=== PATIENT | female | born 1940 | race Caucasian/White ===

== ENCOUNTER 2018-01-17 15:02 | Emergency (ER) | payer MEDICARE ==
[~2018-01-17] VITALS: Ht 165.1 cm; Wt 72.6 kg
[~2018-01-17 15:02] MED LIST: ATENOLOL25 MG PO; CARAFATE1 G1 PO; PANTOPRAZOLE SO40 MG PO; PROTONIX40 M2 PO; QUESTRAN PACKET4 GM PO; RESTORIL15 MG PO; TRAMADOL-ACETAMI1 EA PO; Z.0.COUMADIN3 MG PO; Z.0.RESTORIL30 MG PO; Z.0.ULTRAM 50MG50 MG PO; ZIAC1 UDTAB PO; [UNRECOGNIZED DRUG - OTHER] PO; [UNRECOGNIZED DRUG - OTHER] PO
[2018-01-17 15:13] VITALS: BP 152/87
== END 2018-01-17 15:19 | disposition home or self-care (01) ==
LOC: FSED 15:02
DX: Z48.02 Encounter for removal of sutures (principal)
CPT/HCPCS: 99282; S0630

== ENCOUNTER 2019-02-03 16:50 | Emergency (ER) | payer MEDICARE ==
[~2019-02-03] VITALS: Ht 165.1 cm; Wt 71.0 kg
--- OUTSIDE RECORDS SUMMARY | 2019-02-03 16:54 | XMS REPORT | Clinical Summary ---
Author Author [employer] [facility] [employer] [facility] Address Unknown Phone Unavailable Care Team Providers Care Working Manager Name Role Phone Robyn Coates MD PCP Allergies Comments Active Allergy Reactions Severity Noted Date bleeding ulcer. OK WITH LOW DOSE ASA Aspirin Other (See 05/29/2018 Comments) Morphine 09/13/2018 Bleeding ulcer Nsaids (Non-Steroidal Other (See 05/29/2018 Anti-Inflammatory Drug) Comments) Medications End Date Status Medication Sig Dispensed Refills Start Date Active DULoxetine (CYMBALTA) 30 Take 30 mg by 0 MG capsule mouth nightly. Active tamoxifen (NOLVADEX) 20 Take 20 mg by 0 MG tablet mouth daily. Active traMADol-acetaminophen Take 1 tablet 0 (ULTRACET) 37.5-325 mg by mouth per tablet every 6 (six) hours as needed for Pain. 09/21/2018 Discontinued aspirin 81 MG EC tablet Take 81 mg by 0 mouth daily. 10/06/2018 aspirin 325 MG EC tablet Take 1 tablet 14 tablet 0 (325 mg 9 total) by mouth daily for 14 days. 10/06/2018 HYDROcodone-acetaminophen Take 1 tablet 60 tablet 0 (NORCO 10-325) 10-325 mg by mouth 9 per tablet every 6 (six) hours as needed for up to 15 days. Max Daily Amount: 4 tablets Active Problems Problem Noted Date Arthritis 09/19/2018 Primary osteoarthritis of right knee 09/19/2018 Status post right knee replacement 09/19/2018 Incisional hernia 05/30/2018 Encounters Care Team Description Date Type Specialty Kourtney Samuels MD ARTHROPLASTY,KNEE UNILATERAL 09/19/2018 Surgery Forrest Stringer MD 09/19/2018 Anesthesia Event Kourtney Samuels MD 09/19/2018 [facility] General Internal Medicine - Encounter 09/21/2018 09/19/2018 [facility], [facility] Phone 09/13/2018 Hospital Pre-Admission Testing Encounter Shalini Vallecillo MD HERNIORRHAPHY,INCISIONAL 05/30/2018 Surgery Trudy, Premala 05/30/2018 Anesthesia Event Shalini Vallecillo MD Incisional hernia, without obstruction or gangrene (Primary Dx) 05/30/2018 Hospital Encounter Resource, [facility] Phone 05/29/2018 Hospital Pre-Admission Testing Encounter after 02/02/2018 Social History Date Tobacco Use Types Packs/Day Years Used Former Smoker Smokeless Tobacco: Former User Comments: quit 35 years ago Alcohol Use Drinks/Week oz/Week Comments No Alcohol Habits Answer Date Recorded How often do you have a drink containing alcohol? Never 05/29/2018 How many drinks containing alcohol do you have on Not asked a typical day when you are drinking? How often do you have six or more drinks on one Not asked occasion? Sex Assigned at Date Recorded Not on file Industry Job Start Date Occupation Not on file Not on file Not on file Travel End Travel History Travel Start No recent travel history available. Last Filed Vital Signs Time Taken Vital Sign Reading 09/21/2018 4:03 PM SURGICAL SERVICES ASSISTANT Blood Pressure 141/81 09/21/2018 4:03 PM SURGICAL SERVICES ASSISTANT Pulse 92 09/21/2018 4:03 PM SURGICAL SERVICES ASSISTANT Temperature 37.1 C (98.8 F) 09/21/2018 4:03 PM SURGICAL SERVICES ASSISTANT Respiratory Rate 18 09/21/2018 4:03 PM SURGICAL SERVICES ASSISTANT Oxygen Saturation 94% - Inhaled Oxygen - Concentration 09/19/2018 6:56 AM SURGICAL SERVICES ASSISTANT Weight 72.4 kg (159 lb 9.8 oz) 09/19/2018 6:56 AM SURGICAL SERVICES ASSISTANT Height 165.1 cm (5' 5") 09/19/2018 6:56 AM SURGICAL SERVICES ASSISTANT Body Mass Index 26.56 Plan of Treatment Not on file Implants Device Identifier Shelf Expiration Date Model / Serial / Lot Implanted Type Area Manufactur er 11/14/2020 6191-1-001 / / [id number] Cement Bone Surg Smplx P Full Cement/Pranay Right: Knee JASON:ST 6191-1-001 - [id number] ler/Adhesi SRINI Implanted: Qty: 2 on 09/19/2018 by ve Kourtney Schulte MD [id number] 06/26/2023 5520-B-400 / / [id number] Baseplt Nelly Tib Yao No.4 5520-B-400 Joints Right: Knee JASON:ST - [id number] SRINI Implanted: Qty: 1 on 09/19/2018 by Kourtney Schulte MD [id number] 04/07/2023 5510-F-402 / / [id number] Comp Fem Cr Yao No.4 R 5510-F-402 - Joints Right: Knee JASON:ST [id number] SRINI Implanted: Qty: 1 on 09/19/2018 by Kourtney Schulte MD [id number] 09/22/2022 5530-G-411 / / [id number] Insrt Tib #4 11mm 5530-G-411 - Joints Right: Knee JASON:ST [id number] SRINI Implanted: Qty: 1 on 09/19/2018 by Kourtney Schulte MD [id number] 06/29/2023 5551-G-320 / / [id number] Patella Tri Asymmetric [id number] Joints Right: Knee JASON:ST 5551-G-320 - [id number] SRINI Implanted: Qty: 1 on 09/19/2018 by Kourtney Schulte MD 06/04/2021 PMII / [id number] / [id number] Mesh Geo Prol 3x6in Polypr - Mesh N/A: Abdomen J [id number] &J:ETHICON Implanted: Qty: 1 on 05/30/2018 by Shalini Vallecillo MD Procedures Comments Procedure Name Priority Date/Time Associated Diagnosis RHYTHM STRIP - SCAN 09/25/2018 6:41 AM CDT HEMOGLOBIN AND HEMATOCRIT Routine 09/21/2018 5:34 AM SURGICAL SERVICES ASSISTANT BASIC METABOLIC PANEL (7) Routine 09/21/2018 5:34 AM SURGICAL SERVICES ASSISTANT TRANSFUSION SERVICE 09/20/2018 REPORT - SCAN 6:24 PM SURGICAL SERVICES ASSISTANT HEMOGLOBIN AND HEMATOCRIT Routine 09/20/2018 5:23 AM SURGICAL SERVICES ASSISTANT BASIC METABOLIC PANEL (7) Routine 09/20/2018 5:23 AM SURGICAL SERVICES ASSISTANT AL AN PERINEURAL CATH - Routine 09/19/2018 NO CHARGE 10:06 AM SURGICAL SERVICES ASSISTANT TISSUE EXAM AP Routine 09/19/2018 8:32 AM SURGICAL SERVICES ASSISTANT ANESTHESIA SPINAL BLOCK Routine 09/19/2018 8:16 AM SURGICAL SERVICES ASSISTANT PROCEDURE W/ ILANA ROBOT 09/19/2018 Primary osteoarthritis of 8:15 AM SURGICAL SERVICES ASSISTANT one knee, right Special Needs (JASON TRIATHLON, ILANA ROBOT, SPINAL EPIDURAL WITH ADDUCTOR CANAL BLOCK) ARTHROPLASTY,KNEE 09/19/2018 Primary osteoarthritis of UNILATERAL 8:15 AM SURGICAL SERVICES ASSISTANT one knee, right Special Needs (JASON TRIATHLON, ILANA ROBOT, SPINAL EPIDURAL WITH ADDUCTOR CANAL BLOCK) ABORH, MANUAL STAT 09/19/2018 7:15 AM SURGICAL SERVICES ASSISTANT TYPE AND SCREEN, Routine 09/19/2018 AUTOMATED 7:00 AM SURGICAL SERVICES ASSISTANT HERNIORRHAPHY,INCISIONAL 05/30/2018 Incisional hernia, 7:30 AM SURGICAL SERVICES ASSISTANT without obstruction or gangrene Case Notes 60 MINS PER ROSSY after 02/02/2018 Results * RHYTHM STRIP - SCAN (09/25/2018 6:41 AM CDT) Narrative Performed At * Hemoglobin and hematocrit (09/21/2018 5:34 AM SURGICAL SERVICES ASSISTANT) Only the most recent of 2 results within the time period is included. Hemoglobin 12.0 11.2 - 15.7 GM/DL [facility] Hematocrit 36.8 34.1 - 44.9 % [facility] Specimen Blood Performing Organization Address City/State/Zipcode Phone Number [facility] [address] [place] [address] [facility] * Basic metabolic panel (09/21/2018 5:34 AM SURGICAL SERVICES ASSISTANT) Only the most recent of 2 results within the time period is included. Sodium 143 136 - 145 meq/L [facility] Potassium 4.4 3.5 - 5.1 meq/L [facility] Chloride 111 (H) 98 - 107 meq/L [facility] CO2 27 22 - 29 meq/L [facility] BUN 5 (L) 7 - 21 mg/dL [facility] Creatinine 0.62 0.57 - 1.25 mg/dL [facility] Glucose 162 (H) 70 - 105 mg/dL [facility] Calcium 8.7 8.4 - 10.2 mg/dL [facility] EGFR 94Comment: ESTIMATED GFR IS mL/min/1.73 sq m [facility] NOT ACCURATE CREATININE [place] CLEARANCE IN PREDICTING GLOMERULAR FILTRATION RATE. ESTIMATED GFR IS NOT APPLICABLE FOR DIALYSIS PATIENTS. Specimen Blood Performing Organization Address City/State/Zipcode Phone Number [facility] [address] [place] [address] [facility] * TRANSFUSION SERVICE REPORT - SCAN (09/20/2018 6:24 PM SURGICAL SERVICES ASSISTANT) Narrative Performed At * ANESTHESIA PERIPHERAL BLOCK (09/19/2018 10:06 AM SURGICAL SERVICES ASSISTANT) Narrative Performed At Forrest Stringer MD 09/19/2018 10:07 AM Peripheral Block Patient location during procedure: PACU Start time: 09/19/2018 9:41 AM End time: 09/19/2018 9:45 AM Procedure Indication: procedure for pain, at surgeon's request and post-op pain management Preanesthetic Checklist Completed: patient identified, pre-op evaluation, timeout performed, IV checked, risks and benefits discussed, monitors and equipment checked, anesthesia consent given, prep site dry prior to draping and maximum sterile barriers were used: cap, mask, sterile gown, sterile gloves, and large sterile sheet Staffing Anesthesiologist: Forrest Stringer MD Performed: personally Prep Prep: chlorhexidine gluconate and isopropyl alcohol Procedures: sterile gloves, surgical mask, surgical hat, sterile technique and prep and sterile drape applied Peripheral Nerve Block Patient position: supine Patient monitoring: EKG, HR, BP and SpO2 Laterality: right Block type: adductor canal Injection technique: catheter ultrasound guided - in plane, prescan was completed prior to procedure and needle tip was visualized throughout the entire procedure ultrasound image saved Block Dose: ropivicaine and catheter Infiltration strength: 0.5 % Dose: 25 mL Needle Needle type: Tuohy Needle gauge: 17 G Needle length: 100 mm Needle Localization:US guided and anatomical landmarks Catheter type: open end Catheter size: 19 G Hydrodissection? yesCatheter tunneled Dressing: Occlusive dressing applied in sterile fashion and Dermabond applied at the catheter insertion site Assessment Injection assessment: incremental injection and negative aspiration for heme LOC: Sedated with meaningful contact supplemental oxygen used.no evidence of intravascular injection and no heart rate changeno paresthesia patient had no immediate complications and patient tolerated the procedure well Procedure Note Forrest Stringer MD - 09/19/2018 10:06 AM SURGICAL SERVICES ASSISTANT Peripheral Block Patient location during procedure: PACU Start time: 09/19/2018 9:41 AM End time: 09/19/2018 9:45 AM Procedure Indication: procedure for pain, at surgeon's request and post-op pain management Preanesthetic Checklist Completed: patient identified, pre-op evaluation, timeout performed, IV checked, risks and benefits discussed, monitors and equipment checked, anesthesia consent given, prep site dry prior to draping and maximum sterile barriers were used: cap, mask, sterile gown, sterile gloves, and large sterile sheet Staffing Anesthesiologist: Forrest Stringer MD Performed: personally Prep Prep: chlorhexidine gluconate and isopropyl alcohol Procedures: sterile gloves, surgical mask, surgical hat, sterile technique and prep and sterile drape applied Peripheral Nerve Block Patient position: supine Patient monitoring: EKG, HR, BP and SpO2 Laterality: right Block type: adductor canal Injection technique: catheter ultrasound guided - in plane, prescan was completed prior to procedure and needle tip was visualized throughout the entire procedure ultrasound image saved Block Dose: ropivicaine and catheter Infiltration strength: 0.5 % Dose: 25 mL Needle Needle type: Tuohy Needle gauge: 17 G Needle length: 100 mm Needle Localization: US guided and anatomical landmarks Catheter type: open end Catheter size: 19 G Hydrodissection? yesCatheter tunneled Dressing: Occlusive dressing applied in sterile fashion and Dermabond applied at the catheter insertion site Assessment Injection assessment: incremental injection and negative aspiration for heme LOC: Sedated with meaningful contact supplemental oxygen used.no evidence of intravascular injection and no heart rate changeno paresthesia patient had no immediate complications and patient tolerated the procedure well * Tissue Exam (09/19/2018 8:32 AM SURGICAL SERVICES ASSISTANT) Case Report Surgical Pathology [facility] Report [place] Case: [id number] Authorizing Provider:Kourtney Samuels, Collected: 09/19/2018 0832 Ordering Location: [facility] Received: 09/19/2018 0914 SERVICES Pathologist: Claudy Renee MD Specimen:Condyle,Right Knee DIAGNOSIS PART A RIGHT KNEE CONDYLE, [facility] ARTHROPLASTY: [place] OSTEOARTHRITIC CHANGES IN BONE AND CARTILAGE. REACTIVE SYNOVIAL TISSUE. Signing Pathologist Direct Phone Line: [phone] CPT Code(s) 81362, 22205 [facility] CLINICAL HISTORY Primary osteoarthritis of [facility] right knee [place] SPECIMEN SOURCE Right knee condyle [facility] GROSS DESCRIPTION The specimen consists of [facility] multiple fragments of butler knee [place] bone and soft tissue measuring 7 x 6 x 2.5 cm in aggregate. Bone fragments have distinct osteophyte formation with focal areas of eburnation. Section code: A1 and A2, bone submitted for decalcification; A3, soft tissue and bone submitted for decalcification. CG/pl MICROSCOPIC DESCRIPTION PERFORMED. [facility] Specimen Tissue - Condyle,Right Knee Performing Organization Address City/State/Zipcode Phone Number [facility] [address] [place] [address] [facility] * ANESTHESIA SPINAL BLOCK (09/19/2018 8:16 AM SURGICAL SERVICES ASSISTANT) Narrative Performed At Forrest Stringer MD 09/19/20188:18 AM Spinal Block Patient location during procedure: pre-procedure Start time: 09/19/2018 7:51 AM End time: 09/19/2018 7:54 AM Procedure Indication: procedure for pain, at surgeon's request, post-op pain management and primary anesthetic Staffing Anesthesiologist: Forrest Stringer MD Performed: personally Preanesthetic Checklist Completed: patient identified, pre-op evaluation, timeout performed, IV checked, risks and benefits discussed, monitors and equipment checked, anesthesia consent given, prep site dry prior to draping and maximum sterile barriers were used: cap, mask, sterile gown, sterile gloves, and large sterile sheet Prep Prep: Betadine Procedures: sterile gloves, surgical mask, surgical hat, sterile technique and prep and sterile drape applied Spinal Block Patient position: sitting Patient monitoring: EKG, HR, BP and SpO2 Approach: midlineNo pictures available Level:L3-4 Injection technique: single-shot landmark technique and landmark technique Needle Needle type: ayse. Needle gauge: 25 G Needle Length: 9 cm Insertion Depth: 4 cm Used introducer Assessment Sensory level: T10 Events: cerebrospinal fluid patient tolerated the procedure well and patient had no immediate complications Additional Notes Patient tolerated well.No pain on injection or throughout procedure. Procedure Note Forrest Stringer MD - 09/19/2018 8:16 AM SURGICAL SERVICES ASSISTANT Spinal Block Patient location during procedure: pre-procedure Start time: 09/19/2018 7:51 AM End time: 09/19/2018 7:54 AM Procedure Indication: procedure for pain, at surgeon's request, post-op pain management and primary anesthetic Staffing Anesthesiologist: Forrest Stringer MD Performed: personally Preanesthetic Checklist Completed: patient identified, pre-op evaluation, timeout performed, IV checked, risks and benefits discussed, monitors and equipment checked, anesthesia consent given, prep site dry prior to draping and maximum sterile barriers were used: cap, mask, sterile gown, sterile gloves, and large sterile sheet Prep Prep: Betadine Procedures: sterile gloves, surgical mask, surgical hat, sterile technique and prep and sterile drape applied Spinal Block Patient position: sitting Patient monitoring: EKG, HR, BP and SpO2 Approach: midlineNo pictures available Level: L3-4 Injection technique: single-shot landmark technique and landmark technique Needle Needle type: ayse. Needle gauge: 25 G Needle Length: 9 cm Insertion Depth: 4 cm Used introducer Assessment Sensory level: T10 Events: cerebrospinal fluid patient tolerated the procedure well and patient had no immediate complications Additional Notes Patient tolerated well. No pain on injection or throughout procedure. * ABORH, manual (09/19/2018 7:15 AM SURGICAL SERVICES ASSISTANT) ABO Grouping O [facility] Rh Factor POS [facility] Specimen Blood Performing Organization Address City[facility] Phone Number [facility] [address] [place] [phone] [facility] * Type and screen, automated (09/19/2018 7:00 AM SURGICAL SERVICES ASSISTANT) ABO/RH AUTOMATED (BEAKER) O POSITIVE [facility] Ab Scrn NEGATIVE [facility] Specimen Blood Performing Organization Address City/[facility] Phone [facility] [address] [place], [place] [phone] [facility] after 02/02/2018 Insurance Payer Benefit Subscriber ID Type Phone Address Plan / Group [facility] MEDIC[facility] ADV Advance Directives For more information, please contact: [address] [phone] Date Inactivated Comments Code Status Date Activated 09/21/2018 6:36 PM Full Code 09/19/2018 6:28 AM This code status was determined by: Patient 09/19/2018 6:13 AM Full Code 05/30/2018 6:45 AM This code status was determined by: Patient
--- OUTSIDE RECORDS SUMMARY | 2019-02-03 16:54 | XMS REPORT ---
Author Author [facility] Address Unknown Phone Unavailable Care Team Providers Care Technician Test Systems Name Role Phone YANCI MONSON Unavailable Unavailable Problems This patient has no known problems. Allergies, Adverse Reactions, Alerts This patient has no known allergies or adverse reactions. Medications This patient has no known medications. Results Test Description Test Time Test Comments Text Results Atomic Results Result Comments TISSUE EXAM 2018-09-27 10:38:00 Surgical Pathology Report Case: [id number] Authorizing Provider: Kourtney Monson, Collected: 09/19/2018 0832 Ordering Location: [facility] Received: 09/19/2018 0914 SERVICES Pathologist: Claudy Renee MD Specimen: Condyle,Right Knee PART A RIGHT KNEE CONDYLE, ARTHROPLASTY:OSTEOARTHRITIC CHANGES IN BONE AND CARTILAGE.REACTIVE SYNOVIAL TISSUE. Signing Pathologist Direct Phone Line: [phone] signed by Claudy Renee MD on 09/27/2018 at 10:38 [id number], [id number] osteoarthritis of right kneeRight knee condyleThe specimen consists of multiple fragments of butler knee bone and soft tissue measuring 7 x 6 x 2.5 cm in aggregate. Bone fragments have distinct osteophyte formation with focal areas of eburnation. Section code: A1 and A2, bone submitted for decalcification; A3, soft tissue and bone submitted for decalcification. CG/pl PERFORMED. BASIC METABOLIC PANEL 2018-09-21 06:05:00 SODIUM (BEAKER) (test atku=244) 143 meq/L 136-145 POTASSIUM (BEAKER) (test xmvs=629) 4.4 meq/L 3.5-5.1 CHLORIDE (BEAKER) (test bris=406) 111 meq/L 98-107 CO2 (BEAKER) (test rwgf=176) 27 meq/L 22-29 BLOOD UREA NITROGEN (BEAKER) (test jhlv=905) 5 mg/dL 7-21 CREATININE (BEAKER) (test vtiy=237) 0.62 mg/dL 0.57-1.25 GLUCOSE RANDOM (BEAKER) (test hptz=418) 162 mg/dL 70-105 CALCIUM (BEAKER) (test ddjx=609) 8.7 mg/dL 8.4-10.2 EGFR (BEAKER) (test bili=3454) 94 mL/min/1.73 sq m ESTIMATED GFR IS NOT ACCURATE CREATININE CLEARANCE IN PREDICTING GLOMERULAR FILTRATION RATE. ESTIMATED GFR IS NOT APPLICABLE FOR DIALYSIS PATIENTS. HEMOGLOBIN AND [id number] 05:48:00* Test Item Value Reference Range Comments HEMOGLOBIN (BEAKER) (test quue=914) 12.0 GM/DL 11.2-15.7 HEMATOCRIT (BEAKER) (test oamh=119) 36.8 % 34.1-44.9 BASIC METABOLIC [id number] 05:55:00* Test Item Value Reference Range Comments SODIUM (BEAKER) (test cfaf=569) 139 meq/L 136-145 POTASSIUM (BEAKER) (test vzkn=947) 4.2 meq/L 3.5-5.1 CHLORIDE (BEAKER) (test azzs=893) 112 meq/L 98-107 CO2 (BEAKER) (test oovi=963) 23 meq/L 22-29 BLOOD UREA NITROGEN (BEAKER) (test yikd=018) 9 mg/dL 7-21 CREATININE (BEAKER) (test haqz=171) 0.56 mg/dL 0.57-1.25 GLUCOSE RANDOM (BEAKER) (test aodt=928) 110 mg/dL 70-105 CALCIUM (BEAKER) (test vkly=508) 7.6 mg/dL 8.4-10.2 EGFR (BEAKER) (test bayr=3311) 105 mL/min/1.73 sq m ESTIMATED GFR IS NOT ACCURATE CREATININE CLEARANCE IN PREDICTING GLOMERULAR FILTRATION RATE. ESTIMATED GFR IS NOT APPLICABLE FOR DIALYSIS PATIENTS. HEMOGLOBIN AND [id number] 05:33:00* Test Item Value Reference Range Comments HEMOGLOBIN (BEAKER) (test cmqp=486) 10.9 GM/DL 11.2-15.7 HEMATOCRIT (BEAKER) (test wtpn=866) 34.4 % 34.1-44.9
[2019-02-03] MEDS ORDERED: TETANUS/DIPHTHERIA TOX ADULT 0.5 ML SYR IM ONE (17:45)
--- NOTE | 2019-02-03 18:12 | Diagnostic Imaging Report ---
Exams: Head and maxillofacial CTs without IV contrast History: Fall, pain Comparison studies: No prior studies are available on the PACS for comparison at the time of dictation Technique: Axial images were obtained from the brain and cervical spine. Coronal and sagittal images reconstructed from the axial data. Dose modulation, iterative reconstruction, and/or weight based adjustment of the mA/kV was utilized to reduce the radiation dose to as low as reasonably achievable. Intravenous contrast: None Findings: Head CT: Scalp: Mild occipital scalp swelling. No retained hyperdense foreign body. Bones: No fractures, blastic or lytic lesions. Extra-axial spaces: No masses. No fluid collections. Brain sulci: Mild to moderately prominent Ventricles: Mild to moderately prominent. No hydrocephalus. Parenchyma: No mass, acute hemorrhage or acute or chronic cortical insults. A few subtle hypodensities in the supratentorial white matter are nonspecific but are most compatible with chronic microvascular ischemic changes. Sellar/suprasellar region: No abnormalities. Craniocervical junction: The foramen magnum is patent. No Chiari one malformation. Incidental findings: Lens or placement for previous cataract surgery. Atherosclerotic calcifications in the carotid siphons. Cervical spine CT: Fractures: None. Soft tissues: No gross abnormalities. Atlantoaxial articulation: Intact. Alignment: Straightened cervical curvature minimal retrolisthesis of C5 on C6 and C6 on C7 which are most likely degenerative in etiology. Cervicomedullary junction: No abnormalities. The foramen magnum is patent. Vertebrae: No infection or neoplasm. Degenerative changes: Severely degenerated C5-C6 and C6-C7 discs with loss of disc height and mild canal stenosis at these levels due to disc osteophyte complexes. Mildly degenerated C4-C5 disc with small disc osteophyte complex without significant canal stenosis. Advanced multilevel facet arthrosis. Uncovertebral and facet arthrosis result in mild foraminal stenosis on the left at C3-C4 and bilaterally at C5-C6 and moderate left and mild right foraminal stenosis at C6-C7. Incidental findings: Mild scarring at the included lung apices. Calcified atherosclerosis in the carotid bulbs. Nonspecific heterogeneous thyroid gland.. IMPRESSION: Head CT: 1. Occipital scalp swelling without underlying fracture. 2. No acute intracranial abnormalities. 3. Generalized parenchymal volume loss. 4. Mild chronic microvascular ischemic changes. Cervical spine CT: 1. No cervical spine fracture or acute subluxations. 2. Multilevel degenerative changes as described. 3. Cannot exclude ligament, spinal cord and or vascular abnormalities on the basis of this examination. Signed by: Dr. Zach Julio M.D. on 02/03/2019 6:09 PM
[2019-02-03] MEDS ORDERED: TETANUS/DIPHTHERIA TOX ADULT 0.5 ML SYR ONE (18:23)
[2019-02-03 18:48] VITALS: BP 148/89
== END 2019-02-03 18:49 | disposition home or self-care (01) ==
LOC: FSED 16:50
DX: S06.0X1A Concussion with loss of consciousness of 30 minutes or less, initial encounter (principal); R40.2412 Glasgow coma scale score 13-15, at arrival to emergency department; W01.0XXA Fall on same level from slipping, tripping and stumbling without subsequent striking against object, initial encounter; Y92.009 Unspecified place in unspecified non-institutional (private) residence as the place of occurrence of the external cause; S16.1XXA Strain of muscle, fascia and tendon at neck level, initial encounter; Z86.73 Personal history of transient ischemic attack (TIA), and cerebral infarction without residual deficits; Z85.3 Personal history of malignant neoplasm of breast; Z23 Encounter for immunization
CPT/HCPCS: 70450; 72125; 90471; 90714; 96372; 99283